=== PATIENT | male | born 1935 | race Caucasian/White ===

== ENCOUNTER 2021-09-11 20:11 | Inpatient (IN) | payer MEDICARE, OTHER ==
[~2021-09-11] VITALS: Ht 177.8 cm; Wt 80.1 kg
--- NOTE | 2021-09-11 20:22 | PHYS DOC ---
General Adult EDM: Chief Complaint: BACK INJURY HPI: HPI: Patient is an 86-year-old male who presents to the emergency department via EMS for low back pain. Patient was helping his off the floor when he bent over and felt a pop in his low back. He reports difficulty ambulating after that and sat in a chair and called EMS. Patient rates his pain 8 out of 10. He received 10 mg of morphine IV from EMS prior to arrival. Patient denies any radiation of pain. It is worse with movement. Patient denies falling or hitting his head, loss of bowel or bladder, saddle anesthesias, numbness or tingling in his extremities. (HALI MENDEZ APRN) Review of Systems: Review of Systems: 14 body systems of the review of systems have been reviewed. See HPI for pertinent positive and negative responses, otherwise all other systems are negative, nonpertinent or noncontributory (HALI MENDEZ APRN) Current Medications: Current Meds: Current Medications Medications (Trade) Dose Ordered Sig/Donny Start Time Stop Time Status Last Admin Dose Admin Ketorolac Tromethamine (Toradol Im) 60 mg 1X ONCE 09/11/21 20:30 09/11/21 20:31 UNV Orphenadrine Citrate (Norflex) 60 mg 1X ONCE 09/11/21 20:30 09/11/21 20:31 UNV (HALI MENDEZ ACCREDITATION MANAGER) Physical Exam: PE: Constitutional: Well developed, well nourished, no acute distress, non-toxic appearance. [] HENT: Normocephalic, atraumatic, bilateral external ears normal, oropharynx moist, no oral exudates, nose normal. [] Eyes: PERRL, EOMI, conjunctiva normal, no discharge. [] Neck: Normal range of motion, no bony spinal tenderness,, no step offs or deformities, supple, no stridor. [] Cardiovascular:Heart rate regular rhythm, no murmur [] Lungs & Thorax: Bilateral breath sounds clear to auscultation [] Abdomen: Bowel sounds normal, soft, no tenderness, no masses, no pulsatile masses. [] Skin: Warm, dry, no erythema, no rash. [] Back: right lumbar spinal and paraspinal tenderness with palpation, limited ran ge of motion due to pain Extremities: No tenderness, no cyanosis, no clubbing, ROM intact, no edema, patient able to move her lower extremities. [] Neurologic: Alert and oriented X 3, normal motor function, normal sensory function, no focal deficits noted. [] Psychologic: Affect normal, judgement normal, mood normal. [] (HALI MENDEZ APRN) EKG: EKG: [] (HALI MENDEZ APRN) Radiology/Procedures: Radiology/Procedures: []REASON: low back pain PROCEDURE: CT LUMBAR SPINE WO CONTRAST CT LUMBAR SPINE WO Date: 09/11/2021 8:18 PM Indication: low back pain Comparison: Lumbar spine radiograph 06/30/2020. CT lumbar spine 12/17/2019. Technique: Helical CT images of the lumbar spine were obtained without contrast. Coronal and sagittal reformatted images were also performed. One or more of the following dose reduction techniques were utilized: Automated exposure control (AEC), Adjustment of mA and/or kV according to patient size, Use of iterative reconstruction technique such as ASiR, CT scan done according to ALARA and image gently/image wisely. Findings: Mild right convex curvature centered at L3. No acute fracture. Mild chronic height loss at T12. No aggressive lytic or blastic osseous lesion. Moderate multilevel degenerative disc space height loss. Multilevel mild and moderate spinal canal stenosis secondary to multilevel disc bulging and facet arthrosis. Multilevel mild and moderate neuroforaminal narrowing. Multilevel moderate to severe facet arthrosis. Colonic diverticulosis. The visualized abdominal aorta is normal caliber. IMPRESSION: No acute osseous abnormality of the lumbar spine. Moderate lumbar spondylosis. Electronically signed by: Alicia Anaya MD (09/11/2021 9:03 PM) [facility] DICTATED AND SIGNED BY: ALICIA ANAYA MD DATE: 09/11/212054 CC: EMERGENCY,DEPARTMENT; HAIL MENDEZ APRN; PCP,UNKNOWN ~MTH0 0 (HALI MENDEZ APRN) Heart Score: C/O Chest Pain: N/A Risk Factors: Risk Factors: DM, Current or recent (<one month) smoker, HTN, HLP, family history of CAD, obesity. Risk Scores: Score 0 - 3: 2.5% MACE over next 6 weeks - Discharge Home Score 4 - 6: 20.3% MACE over next 6 weeks - Admit for Clinical Observation Score 7 - 10: 72.7% MACE over next 6 weeks - Early Invasive Strategies (HALI MENDEZ APRN) C/O Chest Pain: No (LORIN SALMERON MD) Course & Med Decision Making: Course & Med Decision Making Pertinent Labs and Imaging studies reviewed. (See chart for details) Patient presents to the emergency department for lumbar back pain. CT was performed of his lumbar spine that showed no acute findings but degenerative changes. Patient received 10 mg of morphine by EMS prior to arrival. Following morphine treatment by EMS, patient be became hypoxic and required oxygen therapy. In the ER he was treated with anti-inflammatory and a muscle relaxer. Patient given another dose of pain medication and a lidocaine patch in the ER. Patient provided with ice pack. Following treatment in the emergency department, patient still reports back pain and is unable to bear weight or ambulate. I discussed patient's findings with him. I discussed my concern that he would be unable to ambulate at home due to the pain. Patient and his son agree that patient should be admitted for pain management. I discussed patient's findings with Dr. Carranza and he agreed to admit the patient under his services for intractable back pain. Bridge orders placed. Care transferred. 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 Patient initially put for observation, but per his insurance requireme nts needs to have an inpatient stay, order change in system. Patient taken up the mary d to his room via EMS in stable condition (LORIN SALMERON MD) Dragon Disclaimer: Dragon Disclaimer: This electronic medical record was generated, in whole or in part, using a voice recognition dictation system. (HALI MENDEZ APRN) Departure Departure: Impression: Primary Impression: Intractable low back pain Disposition: ADMITTED INPATIENT Admitting Physician: Dwayne Carranza (HALI MENDEZ APRN) Admitting Physician: Dwayne Carranza (LORIN SALMERON MD) Condition: GOOD HALI MENDEZ APRN Sep 11, 2021 20:22 LORIN SALMERON MD Sep 12, 2021 02:00
[2021-09-11] MEDS ORDERED: ORPHENADRINE CITRATE 60 MG/2 ML VIAL. IM ONE (20:30)
[2021-09-11] MEDS ORDERED: KETOROLAC 60 MG/2 ML VIAL. IM ONE (20:30)
[2021-09-11] MEDS ORDERED: ONDANSETRON PF 4 MG/2 ML VIAL. IVP ONE (20:45)
[2021-09-11] MEDS ORDERED: PATCH REMOVAL. MC SCH (21:00)
--- NOTE | 2021-09-11 21:05 | RAD ---
CT LUMBAR SPINE WO Date: 09/11/2021 8:18 PM Indication: low back pain Comparison: Lumbar spine radiograph 06/30/2020. CT lumbar spine 12/17/2019. Technique: Helical CT images of the lumbar spine were obtained without contrast. Coronal and sagitta l reformatted images were also performed. One or more of the following dose reduction techniques were utilized: Automated exposure control (AEC), Adjustment of mA and/or kV according to patient size, Us e of iterative reconstruction technique such as ASiR, CT scan done according to ALARA and image gentl y/image wisely. Findings: Mild right convex curvature centered at L3. No acute fracture. Mild chronic height loss at T12. No ag gressive lytic or blastic osseous lesion. Moderate multilevel degenerative disc space height loss. Multilevel mild and moderate spinal canal st enosis secondary to multilevel disc bulging and facet arthrosis. Multilevel mild and moderate neurofo raminal narrowing. Multilevel moderate to severe facet arthrosis. Colonic diverticulosis. The visualized abdominal aorta is normal caliber. IMPRESSION: No acute osseous abnormality of the lumbar spine. Moderate lumbar spondylosis. Electronically signed by: Dusty Anaya MD (09/11/2021 9:03 PM) [facility]
[2021-09-11] MEDS ORDERED: MORPHINE SULFATE 2 MG/ML DISP.SYRIN. IV ONE (21:15)
[2021-09-11] MEDS ORDERED: LIDOCAINE (700MG/PATCH) PATCH. ONE (21:16)
[2021-09-11] MEDS ORDERED: MORPHINE SULFATE 4 MG/ML DISP.SYRIN. IVP PRN (21:45)
--- NOTE | 2021-09-11 23:30 | NUR ---
The patient, CHAD GALLO, 86 y/o, M admitted by ROSA ELENA AGUILAR MD, was given written information regarding hospital policies, unit procedures and contact persons. Valuables were checked and vitals obtained. Pt is A&Ox4 and able to express own concerns. Pt is in pain at a 6 of 10 did receive pain medication in the ED right before admission. Pt is on 2L NC which he does not use at home. Pt is able to sit at bedside to use urinal. Pt is currently resting in bed. Will continue to monitor.
[2021-09-11 23:47] LABS: BASO # 0.1 x10^3/uL (0.0-0.2); BASO % 1 % (0-3); EOS % 0 % (0-3); HEMATOCRIT 42.8 % (39.0-53.0); LYMPH % 9 % (24-48); MEAN CORPUSCULAR HEMOGLOBIN 30 pg (25-35); MEAN CORPUSCULAR HGB CONC 33 g/dL (31-37); MEAN CORPUSCULAR VOLUME 92 fL (79-100); MONO # 0.9 x10^3/uL (0.0-1.1); MONO % 8 % (0-9); NEUT % 82 % (31-73); PLATELET COUNT 131 x10^3/uL (140-400); RED BLOOD COUNT 4.66 x10^6/uL (4.30-5.70); RED CELL DISTRIBUTION WIDTH 15.5 % (11.5-14.5)
[2021-09-11 23:57] LABS: CALCIUM 8.7 mg/dL (8.5-10.1); CREATININE 1.2 mg/dL (0.7-1.3); GFR 57.4; POTASSIUM 3.7 mmol/L (3.5-5.1)
[2021-09-12 00:05] VITALS: BP 123/71
[2021-09-12] MEDS ORDERED: WARF-31 PO (02:18)
[2021-09-12] MEDS ORDERED: WARF2.5T71 PO (02:18)
[2021-09-12 06:13] VITALS: BP 152/66
[2021-09-12] MEDS ORDERED: LIDOCAINE (700MG/PATCH) PATCH. TD SCH (09:00)
[2021-09-12] MEDS ORDERED: LIDOCAINE (700MG/PATCH) PATCH. TD ONE (09:00)
[2021-09-12] MEDS ORDERED: PANT40GR PO (10:10)
[2021-09-12] MEDS ORDERED: FINA5TAB4 PO (10:10)
[2021-09-12 11:08] VITALS: BP 113/53
[2021-09-12] MEDS ORDERED: ONDANSETRON PF 4 MG/2 ML VIAL. IVP PRN (14:30)
[2021-09-12 15:20] LABS: HEMATOCRIT 42.1 % (39.0-53.0); HEMOGLOBIN 13.6 g/dL (13.0-17.5); RED BLOOD COUNT 4.58 x10^6/uL (4.30-5.70); RED CELL DISTRIBUTION WIDTH 15.3 % (11.5-14.5); WHITE BLOOD COUNT 14.2 x10^3/uL (4.0-11.0)
[2021-09-12 15:25] VITALS: BP 112/56
[2021-09-12 15:34] LABS: ALBUMIN 2.7 g/dL (3.4-5.0); CALCIUM 8.5 mg/dL (8.5-10.1); CREATININE 1.5 mg/dL (0.7-1.3); GFR 44.4; POTASSIUM 4.2 mmol/L (3.5-5.1); TOTAL BILIRUBIN 0.8 mg/dL (0.2-1.0); TOTAL PROTEIN 5.5 g/dL (6.4-8.2)
--- NOTE | 2021-09-12 15:58 | HP ---
DATE OF SERVICE: 09/12/2021 ADMIT DATE: 09/11/2021 HISTORY OF PRESENT ILLNESS: The patient is an 86-year-old male patient who was brought to the Emergency Department by Emergency Medical Service for low back pain. He stated he was helping his off the floor when he bent over and felt a pop in his back. He reports difficulty ambulating after that, and sat in a chair and called EMS. He rated his pain as 8/10 in severity. He received 10 mg of morphine IV from EMS prior to arrival. He denied any radiation of pain and denied any bowel or bladder problems. The pain is worse with movement. He denied any fall or hitting his head. He denied any saddle anesthesia, numbness or tingling in his extremities. He was extensively investigated in the Emergency Room. He has had a CT scan of the lumbar spine without contrast, which showed that the patient has mild right convex curvature, centered at L3 with no acute fractures and mild chronic height loss at T12. No aggressive lytic or blastic osseous lesion. He has moderate multilevel degenerative changes, disk space height loss. He has multilevel mild to moderate spinal canal stenosis secondary to multilevel disk bulging and facet arthrosis. He has multilevel mild and moderate neural foraminal narrowing and multilevel moderate to severe facet arthrosis. He has colonic diverticulosis. The visualized abdominal aorta is normal in caliber with the impression that the patient has no acute osseous abnormality of the lumbar spine. With moderate lumbar spondylosis, the patient was admitted for pain management. PAST MEDICAL HISTORY: Significant for atrial fibrillation, nephrolithiasis, osteoarthritis, and benign prostatic hypertrophy. He apparently also seemed to have sick sinus syndrome. PAST SURGICAL HISTORY: Significant for permanent pacemaker implantation, appendectomy, cholecystectomy. He had also EGD and colonoscopy, and had also surgery on the right kidney to remove stones. ALLERGIES: HE IS ALLERGIC TO PENICILLIN, SULFA DRUGS, AND DEMEROL. MEDICATIONS: He is currently on the following medications. He is on warfarin 2.5 mg Tuesday, Tuesday, Tuesday and 5 mg Tuesday, , Tuesday, Tuesday. He is on Protonix 40 mg once a day and finasteride 5 mg at bedtime. FAMILY HISTORY: He had 2 sisters, both older and both , one with myocardial infarction and the second one was due to advanced Alzheimer's disease. His father at the age of 63 because of complication of diabetes. His mother at the age of 65 because of breast cancer. SOCIAL HISTORY: He is , has one daughter who was killed in a motor vehicle accident. He has another daughter and 1 son. He never smoked. He does drink alcohol very occasionally. He does not use any drugs. He is retired. He worked at [employer] in [employer]. REVIEW OF SYSTEMS: He has bilateral cataracts, did not require surgery. He has also senile macular degeneration. He denies any earache, tinnitus, or sensory deafness. He denies any nosebleed, stuffy nose, or postnasal drip. He denies any sore throat, sore tongue, toothache, hoarseness of voice, or difficulty swallowing. He denies any nausea, vomiting, diarrhea, or constipation. He denies any hematemesis, melena, or hematochezia. He denies any dysuria, frequency, or hematuria. He denies any chest pain, shortness of breath, orthopnea, paroxysmal nocturnal dyspnea. He denies any cough, phlegm, or hemoptysis. He denies any chills, rigors, or fever. He denies any dizziness, lightheadedness, or vertigo. PHYSICAL EXAMINATION: GENERAL: On arrival to the Emergency Room, he looked well and was clearly in no apparent respiratory distress. There was no pallor, jaundice, or cyanosis. No lymphadenopathy, no thyromegaly, no jugular venous distention. No lower limb edema. VITAL SIGNS: His heart rate was 61, blood pressure was 143/74, temperature was 97.9, respiratory rate was 18, and oxygen saturation was 94%. HEAD, EYES, EARS, NOSE, AND THROAT: Normocephalic, atraumatic. NECK: Supple. HEART: Showed normal 1st and 2nd heart sounds. No gallop, rub, or murmur. CHEST: Clear to auscultation. No crepitation or rhonchi. ABDOMEN: Distended, soft, nontender. NEUROLOGIC: He was awake, alert, responding appropriately. All cranial nerves intact. He moved extremities without difficulty although any movement aggravated his low back pain. LABORATORY DATA: His lab work showed a white cell count of 11,000, hemoglobin 14, hematocrit 42, MCV 92, and platelet count of 131,000 with normal manual differential. His chemistry showed serum sodium 139, potassium 3.7, chloride 106, bicarbonate 27, anion gap of 6, BUN 17, creatinine 1.2. Estimated GFR was 57, glucose 151, and calcium was 8.7. His coronavirus PCR was not detectable. ASSESSMENT AND PLAN: The patient was admitted with sudden onset of low back pain after he attempted to help his from the floor. He was admitted for pain management. I will arrange for him to have a bone scan, and if it shows any increased activity of his lumbar spine, I will consult the interventional radiologist to see whether he is a candidate for kyphoplasty or vertebroplasty. ADRIANNA/YEHUDA/HUNTER DR: Floyd TID: [id number]
[2021-09-12] MEDS ORDERED: WARFARIN 5 MG TABLET. PO SCH (16:00)
--- NOTE | 2021-09-12 16:36 | NUR ---
PER DR. AGUILAR, HOLD WARFARIN FOR INR OF 3.1. PT RESTED MOST OF THE DAY AND REFUSED PAIN MEDICATIONS. PT WAS NAUSEATED IN THE MORNING BUT FELT BETTER BY THE AFTERNOON. BONE SCAN REORDERED FOR TUESDAY, D/T RADIOLOGY NOT BEING ABLE TO DO IT OVER THE WEEKEND.
[2021-09-12 19:00] VITALS: BP 105/56
--- NOTE | 2021-09-12 22:21 | PN ---
DATE: 09/12/2021 SUBJECTIVE: The patient is resting in bed, continued to complain of low back pain that is aggravated by movement, even sitting on the edge of the bed is very painful for him, so he is lying flat. Denied any loss of bowel or bladder control. The pain does not radiate down to his legs. He has no saddle anesthesia. PHYSICAL EXAMINATION: GENERAL: When I examined him this afternoon, he looked well and was clearly in no apparent respiratory distress. No pallor, jaundice, cyanosis, or thyromegaly. No jugular venous distention. No limb edema. VITAL SIGNS: His heart rate was 77, blood pressure was 113/53, temperature was 99.2, respiratory rate 20, and oxygen saturation was 93% on 2 liters of oxygen. HEAD, EYES, EARS, NOSE, AND THROAT: Normocephalic, atraumatic. NECK: Supple. HEART: Showed normal first and second heart sounds, no gallop or murmur. CHEST: Clear to auscultation, no crepitation or rhonchi. ABDOMEN: Distended, soft, nontender. NEUROLOGIC: He is awake, alert, responding appropriately. Cranial nerves intact. He moves all extremities without difficulty; however, he is mostly bedbound as any movement aggravates his back pain. PLAN: To continue with all his medication. Continue with pain management, and I have arranged for him to have a bone scan that showed evidence of compression fracture. We will transfer him to [facility] for vertebroplasty. JIGNA DR: Floyd TID: [id number]
[2021-09-13 05:23] VITALS: BP 109/57
--- NOTE | 2021-09-13 06:00 | NUR ---
Nursing note: Pt stated he was "sore" but refused pain medication. Ambulated SBA to toilet; slept well with no complaints through shift.
[2021-09-13] MEDS: FINASTERIDE 5 MG TABLET. PO SCH (08:11)
[2021-09-13] MEDS: PANTOPRAZOLE 40 MG TABLET. PO SCH (08:11)
[2021-09-13 10:38] VITALS: BP 120/63
[2021-09-13 11:41] LABS: HEMATOCRIT 40.7 % (39.0-53.0); HEMOGLOBIN 13.4 g/dL (13.0-17.5); RED BLOOD COUNT 4.42 x10^6/uL (4.30-5.70); RED CELL DISTRIBUTION WIDTH 15.3 % (11.5-14.5); WHITE BLOOD COUNT 9.9 x10^3/uL (4.0-11.0)
[2021-09-13 11:47] LABS: CALCIUM 8.8 mg/dL (8.5-10.1); CREATININE 1.3 mg/dL (0.7-1.3); GFR 52.3; POTASSIUM 3.9 mmol/L (3.5-5.1)
--- NOTE | 2021-09-13 13:35 | PN ---
DATE: 09/13/2021 SUBJECTIVE: The patient is resting, slightly propped up in bed, in no apparent respiratory distress. He is awake, alert, responding appropriately. On questioning him, he continued to have back pain. He stated that he tolerated fentanyl much better than morphine. He apparently managed to walk to the bathroom, sat in the chair to eat his breakfast. I did attempt to do a bone scan yesterday, but apparently the bone scans are done only on the weekdays. PHYSICAL EXAMINATION: GENERAL: When I examined him, he looked well and was clearly in no apparent respiratory distress. No pallor, jaundice, cyanosis or thyromegaly. No jugular venous distention. No limb edema. VITAL SIGNS: His heart rate was 67, blood pressure was 109/57, temperature was 98, respiratory rate was 20 and oxygen saturation was 94% on 2 liters of oxygen. HEAD, EYES, EARS, NOSE, AND THROAT: Normocephalic, atraumatic. NECK: Supple. HEART: Showed normal first and second heart sounds, no gallop or murmur. CHEST: Clear to auscultation, no crepitation or rhonchi. ABDOMEN: Distended, soft, nontender. NEUROLOGIC: He is grossly intact. His intake and output are incompletely recorded. LABORATORY DATA: As of yesterday, his prothrombin time was 31.6, INR of 3.1. His chemistry showed a serum sodium 139, potassium 4.2, chloride 106, bicarbonate 29, anion gap of 4, BUN 19, creatinine 1.5. Estimated GFR was 44 mL per minute. His glucose 109, calcium was 8.5. Total bilirubin, AST, ALT, alkaline phosphatase were normal. His total protein was 5.5, albumin 2.7. White cell count was 14,200, hemoglobin 14, hematocrit 42, MCV 92 and platelet count of 118,000. His coronavirus by PCR was negative. ASSESSMENT: 1. New onset of severe back pain after he bent down to lift his . CT scan of the lumbar spine showed degenerative disk disease without any evidence of fracture. 2. The patient has multiple other medical problems including: A. Atrial fibrillation, rate controlled, well anticoagulated. 3. Nephrolithiasis. 4. Osteoarthritis. 5. Benign prostatic hypertrophy. PLAN: My plan is to repeat his lab work this morning. He has an order already for bone scan that hopefully will be done tomorrow. Continue with physical and occupational therapy and continue with pain management. LAURA DR: Floyd TID: [id number]
[2021-09-13 15:10] VITALS: BP 126/73
--- NOTE | 2021-09-13 15:21 | NUR ---
PT TOOK A SHOWER TODAY AND ACCEPTED PAIN MEDS. PT STATES THE FENTANYL HELPS BETTER THAN THE MORPHINE AND DOESN'T MAKE HIM NAUSEOUS. PT ABLE TO GET UP AND WALK TO THE BATHROOM AND GET IN THE CHAIR.
[2021-09-13] MEDS ORDERED: WARFARIN 5 MG TABLET. PO SCH (16:00)
[2021-09-13 19:49] VITALS: BP 113/63
[2021-09-13] MEDS: traMADol 50 MG TABLET PO SCH (22:38)
[2021-09-14] MEDS: traMADol 50 MG TABLET PO SCH ×2 (06:00→14:14)
[2021-09-14] MEDS: PANTOPRAZOLE 40 MG TABLET. PO SCH (08:03)
[2021-09-14] MEDS: FINASTERIDE 5 MG TABLET. PO SCH (08:03)
[2021-09-14 10:54] VITALS: BP 130/67
[2021-09-14 15:11] VITALS: BP 143/75
--- NOTE | 2021-09-14 15:47 | RAD ---
EXAM: NM BONE SCAN WHOLE BODY 09/14/2021 12:43 PM CLINICAL INDICATION: Severe lower back pain after lifting COMPARISON: CT lumbar spine 09/11/2021 TECHNIQUE: The patient was administered 27.1 mCi technetium 99 labeled medronate and whole body bone scintigraphy was performed. FINDINGS: There is physiologic radiotracer uptake. There is no focal radiotracer uptake to suggest ac yuliet fracture or metastatic disease. Radiotracer in the soft tissue in the proximal right forearm and antecubital fossa is likely iatrogenic contrast leakage from injection. IMPRESSION: No evidence of acute fracture or metastatic disease. Electronically signed by: Bronwyn Driscoll MD (09/14/2021 3:45 PM) [id number]
[2021-09-14] MEDS ORDERED: WARFARIN 2.5 MG TABLET. PO SCH (16:00)
--- NOTE | 2021-09-14 17:56 | NUR ---
PT TO TRANSFER TO [facility] FOR HIGHER LEVEL OF CARE. DR. MARTINEZ ACCEPTING PHYSICIAN. PT BONE SCAN CAME BACK NEGATIVE. PT STILL IN PAIN. REQUESTS IV FENTANYL BEFORE TRANSFER.
--- NOTE | 2021-09-14 20:30 | NUR ---
Pt transferred to [facility] room 215. Pt ambulated to [facility] with walk stand by assist. Pt left with all belongings. IV still in place. Pt didnt have any concerns or complaints before he left.
[2021-09-14] MEDS ORDERED: DOCUSATE SODIUM 100 MG CAPSULE PO SCH (21:00)
--- NOTE | 2021-09-14 22:27 | PN ---
DATE: 09/14/2021 SUBJECTIVE: The patient is resting, slightly propped up in bed, no apparent distress. He continued to complain of severe back pain. He was able to walk with a walker, standby assist. We did a bone scan, the results of which is still pending at the time of this dictation. PHYSICAL EXAMINATION: GENERAL: When I examined him, he looked well and was clearly in no apparent respiratory distress. No pallor, jaundice, cyanosis, no lymphadenopathy, no thyromegaly, no jugular venous distention. No limb edema. VITAL SIGNS: His heart rate was 74, blood pressure 143/75, temperature was 98.2, respiratory rate was 18 and oxygen saturation was 88% on 2 liters of oxygen. HEAD, EYES, EARS, NOSE, AND THROAT: Normocephalic, atraumatic. NECK: Supple. HEART: Showed normal first and second heart sounds, no gallop, rub or murmur. CHEST: Clear to auscultation, no crepitation or rhonchi. ABDOMEN: Distended, soft, nontender. NEUROLOGIC: He was grossly intact. His intake over the last 24 hours and output were incompletely recorded. LABORATORY DATA: Showed prothrombin time 323. INR of 2.2. His white cell count was 9900, hemoglobin 13, hematocrit 40, MCV 92 and platelet count of 110,000. His chemistry showed a serum sodium 139, potassium 3.9, chloride 105, bicarbonate 30, anion gap of 4, BUN 20, creatinine 1.3. Estimated GFR was 52 mL per minute, glucose 104, calcium was 8.8. His coronavirus PCR was negative. ASSESSMENT: 1. New onset of severe back pain after he bent down to lift his . CT scan of the lumbar spine showed degenerative disk disease without any evidence of fracture. He does have seem to be an old T12 compression fracture for which we did a bone scan, the result of which is still pending at the time of this dictation. 2. The patient has other medical problems including: A. Atrial fibrillation, rate controlled, was anticoagulated. 3. Nephrolithiasis. 4. Osteoarthritis. 5. Benign prostatic hypertrophy. PLAN: To continue with pain medication. Continue with physical and occupational therapy. Await the results of the bone scan. If there is evidence of a new compression fracture, the patient will be transferred to [facility] for vertebroplasty. SAHARA DR: Floyd TID: [id number]
[2021-09-15] MEDS ORDERED: POLYETHYLENE GLYCOL 3350 17 GM PACKET. PO SCH (09:00)
== END 2021-09-14 20:30 | disposition short-term general hospital (02) | DRG 551 ==
LOC: ER 20:11 → 1 SOUTH 22:20
PROVIDERS: ADMIT Internal Medicine; ATTEND Internal Medicine
DX: M47.816 Spondylosis without myelopathy or radiculopathy, lumbar region (principal); N17.0 Acute kidney failure with tubular necrosis; I48.91 Unspecified atrial fibrillation; Z20.822 Contact with and (suspected) exposure to COVID-19; K57.30 Diverticulosis of large intestine without perforation or abscess without bleeding; M51.36 Other intervertebral disc degeneration, lumbar region; N20.0 Calculus of kidney; I49.5 Sick sinus syndrome; M48.061 Spinal stenosis, lumbar region without neurogenic claudication; N40.0 Benign prostatic hyperplasia without lower urinary tract symptoms; Z80.3 Family history of malignant neoplasm of breast; Z82.0 Family history of epilepsy and other diseases of the nervous system; Z82.49 Family history of ischemic heart disease and other diseases of the circulatory system; Z83.3 Family history of diabetes mellitus; Z87.442 Personal history of urinary calculi; Z90.49 Acquired absence of other specified parts of digestive tract; Z88.0 Allergy status to penicillin; Z88.2 Allergy status to sulfonamides; Z88.8 Allergy status to other drugs, medicaments and biological substances
CPT/HCPCS: 36415; 72131; 78306; 80048; 80053; 85025; 85027; 85610; 87426; 96372; 96374; 96375; A9503; J1885; J2270; J2360; J2405; J3010; U0003; 99285-25